=== PATIENT | male | born 1980 | race Caucasian/White ===

== ENCOUNTER 2017-08-05 11:56 | Emergency (ER) | payer SELFPAY ==
[~2017-08-05] VITALS: Ht 170.2 cm; Wt 85.0 kg
[2017-08-05 11:58] VITALS: BP 134/79; PULSE 72; RESP 20; TEMP 97.5; O2SAT 100
[2017-08-05] MEDS ORDERED: SODIUM CHLOR 0.9% 1000 ML INJ 1,000 ML IV SCH (12:43)
[2017-08-05] MEDS ORDERED: TETANUS/DIPHTHERIA TOXOID ADULT 0.5 ML VIAL IM ONE (12:45)
--- NOTE | 2017-08-05 12:47 | PD ---
HPI Chief Complaint: Injury Time Seen by Provider: 12:35 Travel History International Travel<30 days: No Contact w/Intl Traveler<30days: No Traveled to known affect area: No History of Present Illness HPI 36-year-old male presents for evaluation of a crush injury to the right foot. He reports that 1-2 weeks ago he was changing a tire on a car when the car juliana slipped and the car landed on his right foot. He sustained an abrasion to the right foot as well as soft tissue swelling. He has had persistent pain throughout the week and the right foot. He is able to ambulate. Over the past few days the foot is been feeling more swollen and this is what prompted evaluation. Denies fevers, chills, dark colored urine. Last tetanus vaccination unknown. No other complaints. [facility] Past Medical History Medical History: Denies Significant Hx Social History Alcohol Use: No Tobacco Use: Yes Allergies-Medications (Allergen,Severity, Reaction): Coded Allergies: No Known Allergies (Unverified , 08/05/17) Reported Meds & Prescriptions Reported Meds & Active Scripts Active No Active Prescriptions or Reported Medications Review of Systems Except as stated in HPI: all other systems reviewed are Neg Physical Exam Narrative GENERAL: Well-developed well-nourished male in no acute distress SKIN: Warm and dry. Large abrasion to the dorsal right foot with some surrounding cellulitic changes. There is some ecchymosis to the posterior right foot as well. HEAD: Atraumatic. Normocephalic. EYES: Pupils equal and round. No scleral icterus. No injection or drainage. ENT: No nasal bleeding or discharge. Mucous membranes pink and moist. NECK: Trachea midline. No JVD. CARDIOVASCULAR: Regular rate and rhythm. No murmur appreciated. RESPIRATORY: No accessory muscle use. Clear to auscultation. Breath sounds equal bilaterally. GASTROINTESTINAL: Abdomen soft, non-tender, nondistended. Hepatic and splenic margins not palpable. MUSCULOSKELETAL: Skin as noted above with generalized tenderness to palpation of the right foot. he is able to dorsi and plantarflex his right ankle, flex and extend the toes of the right foot without difficulty. NEUROLOGICAL: Awake and alert. No obvious cranial nerve deficits. Motor grossly within normal limits. Normal speech. Data Data Last Documented VS Vital Signs Date Time Temp Pulse Resp B/P (MAP) Pulse Ox O2 Delivery O2 Flow Rate FiO2 08/05/17 11:58 97.5 72 20 134/79 (97) 100 Room Air Orders Orders Complete Blood Count With Diff (08/05/17 12:43) Basic Metabolic Panel (Bmp) (08/05/17 12:43) Creatine Kinase (Cpk) (08/05/17 12:43) Tetanus/Diphtheria Tox Adult (Tetanus/Di (08/05/17 12:45) Foot, Complete ([id number]) (08/05/17 ) Sodium Chlor 0.9% 1000 Ml Inj (Ns 1000 M (08/05/17 12:43) Clindamycin Inj (Cleocin Inj) (08/05/17 13:15) Labs Laboratory Tests Test 08/05/17 13:15 White Blood Count 9.8 TH/MM3 Red Blood Count 4.04 MIL/MM3 Hemoglobin 13.5 GM/DL Hematocrit 39.2 % Mean Corpuscular Volume 97.1 FL Mean Corpuscular Hemoglobin 33.5 PG Mean Corpuscular Hemoglobin Concent 34.5 % Red Cell Distribution Width 13.8 % Platelet Count 275 TH/MM3 Mean Platelet Volume 7.5 FL Neutrophils (%) (Auto) 61.6 % Lymphocytes (%) (Auto) 29.0 % Monocytes (%) (Auto) 8.1 % Eosinophils (%) (Auto) 0.9 % Basophils (%) (Auto) 0.4 % Neutrophils # (Auto) 6.0 TH/MM3 Lymphocytes # (Auto) 2.8 TH/MM3 Monocytes # (Auto) 0.8 TH/MM3 Eosinophils # (Auto) 0.1 TH/MM3 Basophils # (Auto) 0.0 TH/MM3 CBC Comment DIFF FINAL Differential Comment Blood Urea Nitrogen 12 MG/DL Creatinine 1.07 MG/DL Random Glucose 85 MG/DL Calcium Level 8.3 MG/DL Sodium Level 141 MEQ/L Potassium Level 4.0 MEQ/L Chloride Level 108 MEQ/L Carbon Dioxide Level 28.4 MEQ/L Anion Gap 5 MEQ/L Estimat Glomerular Filtration Rate 77 ML/MIN Total Creatine Kinase 164 U/L [facility] Medical Decision Making Medical Screen Exam Complete: Yes Emergency Medical Condition: Yes Medical Record Reviewed: Yes Differential Diagnosis Cellulitis, fracture, abrasion, contusion, crush injury, rhabdomyolysis, compartment syndrome Narrative Course Examination reveals an abrasion of the dorsal right foot with some stranding ecchymosis as well as cellulitic changes. There is no evidence of compartment syndrome. Plan is for CBC, BMP, CK. He'll be given IV fluids. An x-ray will be obtained. Tetanus status updated. Labs and imaging studies are reassuringly unremarkable. The plan is to treat the patient has an outpatient for cellulitis. He understands to return here for worsening infection. Diagnosis Primary Impression: Cellulitis of right foot Additional Instructions: Take the antibiotics as prescribed. Keep the wound clean with soap and water and apply antibiotic cream daily. Return for new or worsening symptoms. Med/Other Pt SpecificInfo: Prescription(s) given Scripts Cephalexin (Keflex) 500 Mg Cap 500 MG PO Q8H for Infection, #30 CAP 0 Refills Prov: Mary Bai DO 08/05/17 Sulfamethoxazole-Trimethoprim (Bactrim DS) 800-160 Mg Tab 1 TAB PO BID for Infection, #20 TAB 0 Refills Prov: Mary Bai DO 08/05/17 Disposition: 01 DISCHARGE HOME Condition: Stable Ramon Hernandez Aug 05, 2017 12:47
[2017-08-05] MEDS ORDERED: CLINDAMYCIN INJ 600 MG in SODIUM CHLORIDE 0.9% INJ 100 ML IV ONE (13:15)
--- NOTE | 2017-08-05 13:44 | RADRPT ---
EXAM DATE/TIME: 08/05/2017 13:12 [place] COMPARISON: No previous studies available for comparison. INDICATIONS : Right foot pain after car fell on foot. MEDICAL HISTORY : Smoker. SURGICAL HISTORY : None. ENCOUNTER: Initial ACUITY: 2 weeks PAIN SCORE: 4/10 LOCATION: Right entire foot. FINDINGS: Three view examination of the right foot demonstrates no soft tissue swelling, dislocation, or fractu re. The tarsal bones appear intact. The interphalangeal and metatarsophalangeal joints are intact. The calcaneus is intact. Bony mineralization is normal. CONCLUSION: Negative for fracture or dislocation. Follow up in 7-10 days is suggested if symptoms persist. Cricket Vivas MD FACR on August 05, 2017 at 13:42 Board Certified Radiologist. This report was verified electronically.
[2017-08-05 13:50] LABS: BASOPHIL % 0.4 % (0.0-2.0); EOSINOPHIL # 0.1 TH/MM3 (0-0.4); EOSINOPHIL % 0.9 % (0.0-4.0); HEMATOCRIT 39.2 % (39.0-51.0); HEMO FLAGS DIFF FINAL; LYMPHOCYTE # 2.8 TH/MM3 (1.0-4.8); MEAN CELL VOLUME 97.1 FL (80.0-100.0); MEAN CORPUSCULAR HEMOGLOBIN 33.5 PG (27.0-34.0); MEAN CORPUSCULAR HGB CONC 34.5 % (32.0-36.0); MONO % 8.1 % (0.0-8.0); NEUT % 61.6 % (16.0-70.0); PLATELET COUNT 275 TH/MM3 (150-450); RED BLOOD COUNT 4.04 MIL/MM3 (4.50-5.90); RED CELL DISTRIBUTION WIDTH 13.8 % (11.6-17.2); WHITE BLOOD COUNT 9.8 TH/MM3 (4.0-11.0)
[2017-08-05 14:04] LABS: BICARBONATE 28.4 MEQ/L (21.0-32.0)
[2017-08-05] MEDS ORDERED: CEPH-460 PO (14:28)
[2017-08-05] MEDS ORDERED: BACT800T5 PO (14:28)
== END 2017-08-05 14:45 | disposition home or self-care (01) ==
LOC: NEPK 11:56
DX: L03.115 Cellulitis of right lower limb (principal)
CPT/HCPCS: 73630; 80048; 82550; 85025; 90471; 90714; 96374; 99284; J7030

== ENCOUNTER 2017-09-22 10:13 | Emergency (ER) | payer SELFPAY ==
[~2017-09-22] VITALS: Ht 170.2 cm; Wt 86.0 kg
[~2017-09-22 10:13] MED LIST: BACT800T5 PO; CEPH-460 PO
[2017-09-22 10:14] VITALS: BP 115/75; PULSE 74; RESP 18; TEMP 98; O2SAT 98
--- NOTE | 2017-09-22 10:40 | PD ---
HPI Chief Complaint: Skin Problem Time Seen by Provider: 10:35 Travel History International Travel<30 days: No Contact w/Intl Traveler<30days: No Traveled to known affect area: No History of Present Illness HPI 37-year-old male patient presents to the ER today because he had a right foot wound after a beam fell on him 2 months ago, is here because he states that the wound has not completely healed over. He states that it has been getting better and decreasing in size. He has had no increase in pain although he states after standing for a period of hours at work, it does hurt. He denies any fevers or any new injuries or other issues. He is simply here because he states that his told him to come and get checked out because it has been many months and has not completely healed. Modifying Factors: None Associated Signs & Symptoms: Right foot wound check, injured 2 months ago Risk Factors: None History Social History Alcohol Use: No Tobacco Use: Yes Allergies-Medications (Allergen,Severity, Reaction): Coded Allergies: No Known Allergies (Unverified , 09/22/17) Reported Meds & Prescriptions Reported Meds & Active Scripts Active Review of Systems Except as stated in HPI: all other systems reviewed are Neg Physical Exam Narrative GENERAL: Well-nourished, well-developed young white male patient in no acute distress here at awake and oriented 3.. SKIN: Focused skin assessment warm/dry. The right foot wound is 2 cm in size, appears to be clean base with no surrounding erythema and nontender to palpation. There is no significant amount of edema at this point over the foot. Neurovascularly intact. HEAD: Normocephalic. EYES: No scleral icterus. No injection or drainage. NECK: Supple, trachea midline. No JVD or lymphadenopathy. MUSCULOSKELETAL: No cyanosis, or edema. Data Data Last Documented VS Vital Signs Date Time Temp Pulse Resp B/P (MAP) Pulse Ox O2 Delivery O2 Flow Rate FiO2 09/22/17 10:14 98.0 74 18 115/75 (88) 98 Room Air Orders Orders Ed Discharge Order (09/22/17 10:35) MDM Medical Screen Exam Complete: Yes Emergency Medical Condition: No Narrative Course This appears to be a healing wound although it is not completely healed over. At this point, there are no signs of infection. And I do not see any acute emergency. Patient himself states that he has been healing well. He just wanted to see if there is anything else that needs to be done with it since it has not completely healed over. At this point, patient can follow-up as an outpatient with primary care doctor in wound care. Return for any worsening in pain, redness, swelling, or signs of wound infection. A medical screening exam was done and I do not see any signs of acute processes. He should return for any signs of worsening in symptoms or new issues. Primary Impression: Encounter for wound re-check Referrals: [facility] Disposition: [facility]GO-ED USE ONLY Condition: Stable Mo Kamara MD Sep 22, 2017 10:40
== END 2017-09-22 10:46 | disposition left against medical advice (07) ==
LOC: NEPE 10:13
DX: Z51.89 Encounter for other specified aftercare (principal); Z72.0 Tobacco use
CPT/HCPCS: 99281